=== PATIENT | male | born 1965 | race African-American/Black ===

== ENCOUNTER 2020-09-20 02:47 | Emergency (ER) | payer MEDICAID ==
[~2020-09-20] VITALS: Ht 193 cm; Wt 102.0 kg
[2020-09-20] MEDS ORDERED: METHOCARBAMOL 500MG TABLET PO ONE (04:00)
[2020-09-20] MEDS ORDERED: GABAPENTIN 300MG CAPSULE PO ONE (04:00)
[2020-09-20] MEDS ORDERED: HYDROCODONE/ACETAMINOPHEN 5/325MG TABLET PO ONE (04:00)
[2020-09-20] MEDS ORDERED: HYDR-4001 MT (05:18)
[2020-09-20] MEDS ORDERED: GABA-532 MT (05:18)
[2020-09-20 06:24] LABS: BASOPHILS % 1.1 % (0.0-2.0); EOSINOPHILS % 1.7 % (0.0-5.0); HEMATOCRIT. 48.6 % (42.0-52.0); HEMOGLOBIN. 16.4 g/dL (14.0-18.0); LYMPHOCYTES % 29.6 % (20.0-50.0); MEAN CORPUSCULAR HEMOGLOBIN 33.4 pg (28.0-32.0); MEAN CORPUSCULAR VOLUME 99.1 fL (80.0-94.0); MEAN PLATELET VOLUME 8.2 fl (7.4-10.4); MONOCYTES % 9.7 % (2.0-8.0); NEUTROPHILS % 57.9 % (40.0-76.0); PLATELET 255 x1000/uL (130-400); RED CELL DISTRIBUTION WIDTH 14.9 % (11.6-14.6)
[2020-09-20 06:31] LABS: CHLORIDE 104 mEq/L (98-107)
[2020-09-20] MEDS ORDERED: KETOROLAC 30MG/ML VIAL IV STA (06:51)
[2020-09-20] MEDS ORDERED: ONDANSETRON HCL 4MG/2ML INJ IV STA (06:51)
[2020-09-20] MEDS ORDERED: SODIUM CHLORIDE 0.9% 1,000 ML IV ONE (07:00)
[2020-09-20 07:55] VITALS: BP 122/79
== END 2020-09-20 10:37 | disposition home or self-care (01) ==
LOC: ER 02:47 → CANBEDREQ 10:28 → ER 10:37
DX: G89.29 Other chronic pain (principal); R07.9 Chest pain, unspecified; F17.210 Nicotine dependence, cigarettes, uncomplicated; M19.90 Unspecified osteoarthritis, unspecified site; M48.00 Spinal stenosis, site unspecified
CPT/HCPCS: 36415; 71045; 80053; 84484; 85025; 93005; 96361; 96374; 96375; 99285; J1885; J2405; J7030

== ENCOUNTER 2024-03-03 19:30 | Emergency (ER) | payer MEDICAID, OTHER ==
[~2024-03-03 19:30] MED LIST: GABA-1180 MT; HYDR-4001 MT
== END 2024-03-03 21:24 | disposition left against medical advice (07) ==
LOC: ER 19:30
DX: M79.641 Pain in right hand (principal); Z53.21 Procedure and treatment not carried out due to patient leaving prior to being seen by health care provider

== ENCOUNTER 2024-10-20 20:34 | Emergency (ER) | payer BC, MEDICAID ==
[~2024-10-20] VITALS: Ht 193 cm; Wt 93.0 kg
[2024-10-20 20:46] VITALS: O2SAT 100
[2024-10-20 21:53] VITALS: TEMP 37.2; O2SAT 100
[2024-10-20 23:56] VITALS: BP 158/88; PULSE 82; RESP 18
[2024-10-20] MEDS: HYDROCODONE/ACETAMINOPHEN 7.5/325MG TABLET PO ONE (23:56)
== END 2024-10-21 00:15 | disposition home or self-care (01) ==
LOC: ER 20:34
DX: G89.29 Other chronic pain (principal); M54.50 Low back pain, unspecified; F10.90 Alcohol use, unspecified, uncomplicated; F12.90 Cannabis use, unspecified, uncomplicated; F14.90 Cocaine use, unspecified, uncomplicated; Y90.9 Presence of alcohol in blood, level not specified
CPT/HCPCS: 99283; Z7610